=== PATIENT | female | born 2000 | race Caucasian/White ===

== ENCOUNTER 2022-02-07 13:47 | Inpatient (IN) | payer OTHER ==
[~2022-02-07] VITALS: Ht 172.7 cm; Wt 47.2 kg
[2022-02-07] VITALS (7 sets, daily range): BP systolic 94–112; BP diastolic 49–75
--- NOTE | 2022-02-07 14:38 | NUR ---
admitted from [facility] for gi bled. Her hgb at [facility] was 5.8. she had a unit of PC there; completed. originally started in July she would have bloody stools ; sometimes bright red. she has lost approx 40 pounds since then. dairy makes it worse. food sometimes makes her feels nauseated. she has had a tendency to be anemic and will take an occasional iron pill. otherwise she takes no meds. she does vape daily.
--- NOTE | 2022-02-07 14:55 | PDOC1 ---
History and Physical Date of Admission Date of Admission DATE: 02/07/22 TIME: 14:55 Identification/Chief Complaint Chief Complaint Blood in stool, acute anemia Source Source: Patient History of Present Illness History of Present Illness Ms Holliday is a 21 yo female with no PMHx who presents as a transfer from [facility] in [place] for acute anemia. She was instructed at 2300 overnight on 02/06/2022 from her PCP office to go to ED for treatment of Hb of 5.2. She has been having dark and bloody stools since July 2021. Stools are watery with cramping and relief after a BM. She notes she has a BM within 20 minutes of eating and has an intermittently fluctuating appetite. She note almost a 40 pound weight loss. 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 She has since quit working a police office but symptoms persisted. She has related lightheadedness and dizziness and recently dyspnea with exertion. She has her first GI appointment outpatient scheduled on 02/09/2022. Has an irregular period, some spotting x 2 months. On ROS she notes pruritic lesions that are raised and red 4x8cm on her left anterior thigh, right posterior thigh and abdominal wall, she calls them mosquito bites Denies use of blood thinners. Denies . No nausea or vomiting. Patient does report family history in father with Crohn's disease. She did go to urgent care and ED in November and had CT abdomen/pelvis on 11/27/2021 showed diffuse colonic wall thickening with pericolic edema most prominent within the distal colon and rectum, concerning for infectious or inflammatory colitis and numerous small abdominal and pelvic lymph nodes, potentially reactive. She was treated with antibiotics and sent home. In ED notably tachycardic, pale, uncomfortable. Given IV protonix and type and screen. Labs with WBC 11.5, Hb 5.8, MCV 61, platelets 700, INR 1.1, PTT 24, NA 135 K4.1, BUN 10, CR 0.7, glucose 98, calcium 8.8, bilirubin 0.4, AST 17, ALT 20, alkaline phosphatase 68, albumin 2.8, lipase 530. Type and screen and transfused 1 unit PRBC, transferred to [facility] for further care. Past Medical History Cardiovascular: No pertinent hx Past Surgical History Past Surgical History left wrist surgery after injury with punch box tender, Right inguinal hernia repair as a child Family History Family History: Other (Crohn disease - father) Social History Smoke: <1 pack per day (Vapes nicotine) ALCOHOL: occassional Drugs: None Allergies Allergies: Coded Allergies: No Known Drug Allergies (Unverified , 02/07/22) ROS General: YES: Fatigue, Malaise; No: Chills, Night Sweats, Appetite, Other PSYCHOLOGICAL ROS: No: Anxiety, Behavioral Disorder, Concentration difficultie, Decreased libido, Depression, Disorientation, Hallucinations, Hostility, Irritablity, Memory difficulties, Mood Swings, Obsessive thoughts, Physical abuse, Sexual abuse, Sleep disturbances, Suicidal ideation, Other Eyes: No Blurry vision, No Decreased vision, No Double vision, No Dry eyes, No Excessive tearing, No Eye Pain, No Itchy Eyes, No Loss of vision, No Photophobi a, No Scotomata, No Uses contacts, No Uses glasses, No Other HEENT: No: Heacaches, Visual Changes, Hearing change, Nasal congestion, Nasal discharge, Oral lesions, Sinus pain, Sore Throat, Epistaxis, Sneezing, Snoring, Tinnitus, Vertigo, Vocal changes, Other ALLERGY AND IMMUNOLOGY: No: Hives, Insect Bite Sensitivity, Itchy/Watery Eyes, Nasal Congestion, Post Nasal Drip, Seasonal Allergies, Other Hematological and Lymphatic: YES: Bleeding Problems; No: Blood Clots, Blood Transfusions, Brusing, Night Sweats, Pallor, Swollen Lymph Nodes, Other ENDOCRINE: No: Breast Changes, Galactorrhea, Hair Pattern Changes, Hot Flashes, Malaise/lethargy, Mood Swings, Palpitations, Polydipsia/polyuria, Skin Changes, Temperature Intolerance, Unexpected Weight Changes, Other Breast: No New/Changing Breast Lumps, No Nipple changes, No Nipple discharge, No Other Respiratory: No: Cough, Hemoptysis, Orthopnea, Pleuritic Pain, Shortness of breath, SOB with excertion, Sputum Changes, Stridor, Tachypnea, Wheezing, Other Cardiovascular: No Chest Pain, No Palpitations, No Orthopnea, No Paroxysmal Noc. Dyspnea, No Edema, No Lt Headedness, No Other Gastrointestinal: Yes Abdominal Pain, Yes Diarrhea, Yes Melena, Yes Hematochezia; No Nausea, No Vomiting, No Constipation, No Other Genitourinary: No Dysuria, No Frequency, No Incontinence, No Hematuria, No Retention, No Discharge, No Urgency, No Pain, No Flank Pain, No Other, No , No , No , No , No , No , No Musculoskeletal: No Gait Disturbance, No Joint Pain, No Joint Stiffness, No Joint Swelling, No Muscle Pain, No Muscular Weakness, No Pain In:, No Swelling In:, No Other Neurological: No Behavorial Changes, No Bowel/Bladder ControlChng, No Confusion, No Dizziness, No Gait Disturbance, No Headaches, No Impaired Coord/balance, No Memory Loss, No Numbness/Tingling, No Seizures, No Speech Problems, No Tremors, No Visual Changes, No Weakness, No Other Skin: No Dry Skin, No Eczema, No Hair Changes, No Lumps, No Mole Changes, No Mottling, No Nail Changes, No Pruritus, No Rash, No Skin Lesion Changes, No Other, No Acne Physical Exam General: Alert, Oriented X3, Cooperative, mild distress HEENT: Atraumatic, PERRLA, EOMI, Other (pale mucous membranes) Lungs: Clear to auscultation, Normal air movement Heart: S1S2, RRR, no thrills, no rubs, no gallops, no murmurs Abdomen: Normal bowel sounds, Soft, No tenderness, No hepatosplenomegaly, No masses Rectal Exam: not examined Extremities: No clubbing, No cyanosis, No edema, Normal pulses, No tenderness/swelling Skin: Other (raised erythematous lesions on left thigh, right posterior thigh, abdominal wall) Neuro: Normal gait, Normal speech, Strength at 5/5 X4 ext, Normal tone, Sensation intact, Cranial nerves 3-12 NL, Reflexes 2+ Psych/Mental Status: Mental status NL, Mood NL Vitals Vitals Vital Signs Date Time Temp Pulse Resp B/P (MAP) Pulse Ox O2 Delivery O2 Flow Rate FiO2 02/07/22 14:01 Room Air Images Images CT abdomen/pelvis 11/27/2021: CT ABDOMEN PELVIS WO CONTRAST CT ABDOMEN+PELVIS WO History: Reason: DIARRHEA, ABNORMAL WEIGHT LOSS / Spl. Instructions: LMP X2 WEEKS AGO / History: Technique: Noncontrast examination of the abdomen and pelvis. Coronal and sagittal reconstructions were performed. Exposure: One or more of the following individualized dose reduction techniques were utilized for this examination: 1. Automated exposure control 2. Adjustment of the mA and/or kV according to patient size 3. Use of iterative reconstruction technique. Comparison: None Findings: Lower chest: No consolidation or pleural effusion. Abdomen and pelvis: Unremarkable noncontrast appearance of the liver, spleen, adrenal glands, pancreas and gallbladder. No biliary ductal dilatation. No renal calculus. No hydronephrosis. Decompressed urinary bladder. Diffuse colonic wall thickening most prominent within the distal colon and rectum moderate. There is adjacent pericolonic edema most prominent distally. Normal appendix. No evidence of bowel obstruction. No pneumoperitoneum. No pneumatosis. Numerous small mesenteric and retroperitoneal as well as pelvic lymph nodes. No ascites. Bones: No pathologic osseous lesions. Impression: 1. Diffuse colonic wall thickening with pericolic edema most prominent within the distal colon and rectum, concerning for infectious or inflammatory colitis. Recommend further clinical evaluation. 2. Numerous small abdominal and pelvic lymph nodes, potentially reactive. Recommend follow-up. VTE Prophylaxis Ordered VTE Prophylaxis Devices: No VTE Pharmacological Prophylaxi: No Assessment/Plan Assessment/Plan Acute blood loss anemia - likely due to lower GI losses based on inflammatory changes on prior CT. Transfuse to Hb > 7 for active bleeding, check iron and will give IV iron as well Bloody diarrhea - with crampy abdominal pain. likely IBD, will check for ova/parasites and r/o c. difficile and shigella/salmonella and other enteric pathogens. Check fecal lactoferrin, CRP, Sed rate Abnormal weight loss - likely due to malabsorption from presumptive colitis. Will check B12, vitamin D Raised skin lesions - likely erythema nodosum. Topical benadryl and 1% hydrocortisone Elevated lipase - minimally elevated, no elevation in alk phos, not clear etiology FEN - General diet PPX - PPI FULL CODE Dispo - inpatient for symptomatic active blood loss anemia Justifications for Admission Other Justification SHAYLA YOON MD Feb 07, 2022 14:55
[2022-02-07] MEDS ORDERED: ONDANSETRON PF 4 MG/2 ML VIAL. IVP PRN (15:00)
[2022-02-07] MEDS ORDERED: fentaNYL PF VIAL 100 MCG/2 ML VIAL IVP PRN (15:00)
[2022-02-07] MEDS ORDERED: ACETAMINOPHEN 650 MG SUPP.RECT. PR PRN (15:00)
[2022-02-07] MEDS ORDERED: BISACODYL 10 MG SUPP.RECT. PR PRN (15:00)
--- NOTE | 2022-02-07 16:00 | PDOC2 ---
GI CONSULT Date of Service: DATE: 02/07/22 TIME: 15:52 Reason For Consult: acute anemia HPI: HPI: 21 y/o female sent from [facility]. History from chart, pt, and supportive parents at bedside. Ill since 07/2021 w/ diarrhea (3-4 times daily, watery/loose, frequently w/ red blood), intermittent lower abdominal cramping, intermittent vomiting (none for 1.5 months), fluctuating appetite, and weight loss (40 pounds). Was seen at an urgent care in [place] in 11/2021. Told "blood was thin and there's not much of it." Also outpt CT ordered - done @ [facility] and showed "diffuse colonic wall thickening w/ pericolic edema most prominent within distal colon and rectum." Also noted "numerous small abdominal and pelvic lymph nodes, potentially reactive." Was treated w/ an antibiotic per urgent care. Established PCP recently - had labs yesterday and was called w/ critical result of Hgb 5.2 last night and advised to go to the ER. Labs at [facility]: Hgb 5.8, MCV 61, plt 700, INR 1.1, BUN 10, Cr 0.7, normal LFTs, lipase 530, albumin 2.8. Given 1 unit pRBCs prior to transfer. Has noted some epigastric discomfort when abdomen palpated today. No heartburn/reflux, dysphagia, hematemesis, constipation, or melena. No previous EGD or colonoscopy. No GB, liver, pancreas, or PUD history. Occasional ibuprofen for headaches. Took probiotics in the past. Anemic as a child, was told to eat more meat. Has some mosquitos bites on legs that popped up today that are very itchy. Also has some occasional abdominal pain that tracks from left pelvis to LUQ - feels like past period cramps; however, hasn't had a period other than maybe some spotting x 2 months. Really hungry, hasn't eaten to 12 hours. Surprised that she is to stay the night in the hospital - wants to discharge soon. PMH: PMH: anemia as a child, headaches left wrist surgery after injury with box fabricator, inguinal hernia repair as a child FH: Family History: Other (Crohn's - father) Social History: Smoke: <1 pack per day (vapes) ALCOHOL: occassional ROS: GEN: Denies fevers, chills, sweats HEENT: Denies blurred vision, sore throat CV: Denies chest pain RESP: Denies shortness of air, cough GI: Per HPI : Denies hematuria, dysuria ENDO: Denies weight changes NEURO: Denies confusion, dizziness MSK: +weakness SKIN: Denies jaundice, pruritus Vitals: Vitals: Vital Signs Date Time Temp Pulse Resp B/P (MAP) Pulse Ox O2 Delivery O2 Flow Rate FiO2 02/07/22 14:01 Room Air Labs: Labs: as above Allergies: Coded Allergies: No Known Drug Allergies (Unverified , 02/07/22) Imaging: Imaging: previous CT per HPI PE: GEN: NAD, thin HEENT: Atraumatic, PERRL LUNGS: CTAB HEART:mildly tachycardic ABD: quiet BS, S/ND, mild epigastric discomfort EXTREMITY: No edema SKIN: +tattoos, pale NEURO/PSYCH: A & O 3 A/P: A/P: Bloody diarrhea x 7 months w/ weight loss and abdominal cramping Profound microcytic anemia Mildly elevated lipase - unclear significance H/o abnormal CT - diffuse colonic wall thickening w/ pericolic edema most prominent in distal colon/rectum - treated w/ atbx per urgent care CRC screen - none FH Crohn's -- D/w Dr. Cabrera - isabella to advance diet - called to nurse. Await lab recheck - transfuse for Hgb > 7. Note sed rate and lactoferrin ordered, will add C Diff for completeness since given antibiotics in 11/2021. Concern for IBD given symptoms and family history. 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 Empiric PPI, check anemia parameters, consider iron infusion, consider interval abdominal imaging. LIZA LYNN Feb 07, 2022 16:00
[2022-02-07] MEDS: IV RINGERS,LACTATED 1000ML 1,000 ML IV SCH (17:25)
[2022-02-07 18:12] LABS: HEMATOCRIT 22.6 % (36.0-47.0); RED BLOOD COUNT 3.55 x10^6/uL (3.50-5.40); RED CELL DISTRIBUTION WIDTH 29.4 % (11.5-14.5)
[2022-02-07 18:23] LABS: HEMOGLOBIN 6.6 g/dL (12.0-15.5)
[2022-02-07] MEDS ORDERED: diphenhydrAMINE HCL 25 MG CAPSULE PO PRN ×2 (18:45)
[2022-02-07] MEDS ORDERED: DIPHENHYDRAMINE/ZINC ACETATE 2%/0.1% TOPICAL CREAM 28GM TUBE. TP PRN (18:45)
[2022-02-07] MEDS ORDERED: IRON SUCROSE COMPLEX 200 MG in IV NORMAL SALINE 100ML 100 ML IV ONE (20:00)
[2022-02-07 20:06] LABS: U PREG PATIENT NEGATIVE (NEG)
[2022-02-07] MEDS: HYDROCORTISONE 1% LOTION BOTTLE. TP SCH (20:11)
[2022-02-08] VITALS (8 sets, daily range): BP systolic 90–117; BP diastolic 45–68
[2022-02-08] MEDS: IV RINGERS,LACTATED 1000ML 1,000 ML IV SCH ×2 (05:05→18:25)
[2022-02-08 08:06] LABS: BASO # 0.1 x10^3/uL (0.0-0.2); BASO % 1 % (0-3); EOS # 1.5 x10^3/uL (0.0-0.7); EOS % 15 % (0-3); HEMATOCRIT 26.3 % (36.0-47.0); HEMOGLOBIN 7.9 g/dL (12.0-15.5); LYMPH # 1.6 x10^3/uL (1.0-4.8); LYMPH % 16 % (24-48); MEAN CORPUSCULAR HEMOGLOBIN 20 pg (25-35); MEAN CORPUSCULAR HGB CONC 30 g/dL (31-37); MEAN CORPUSCULAR VOLUME 65 fL (79-100); MONO # 1.1 x10^3/uL (0.0-1.1); MONO % 11 % (0-9); NEUT # 5.8 x10^3/uL (1.8-7.7); NEUT % 58 % (31-73); PLATELET COUNT 513 x10^3/uL (140-400); RED BLOOD COUNT 4.01 x10^6/uL (3.50-5.40); RED CELL DISTRIBUTION WIDTH 28.4 % (11.5-14.5); WHITE BLOOD COUNT 10.1 x10^3/uL (4.0-11.0)
[2022-02-08] MEDS ORDERED: CYANOCOBALAMIN (VITAMIN B-12) 1,000 MCG/ML VIAL. IM ONE (08:30)
[2022-02-08] MEDS: PANTOPRAZOLE 40 MG TABLET.DR. PO SCH (08:36)
[2022-02-08] MEDS: HYDROCORTISONE 1% LOTION BOTTLE. TP SCH ×3 (08:36→21:17)
[2022-02-08 08:47] LABS: ALBUMIN 2.5 g/dL (3.4-5.0); ALBUMIN/GLOBULIN RATIO 0.6 (1.0-1.7); CALCIUM 8.6 mg/dL (8.5-10.1); CREATININE 0.8 mg/dL (0.6-1.0); GFR 89.7; POTASSIUM 3.7 mmol/L (3.5-5.1); TOTAL PROTEIN 6.6 g/dL (6.4-8.2)
[2022-02-08] MEDS ORDERED: IRON SUCROSE COMPLEX 200 MG in IV NORMAL SALINE 100ML 100 ML IV ONE (09:00)
[2022-02-08 09:20] LABS: % BANDS 38 % (0-9); % EOS 20 % (0-5); % LYMPHS 14 % (24-48); % METAS 3 % (0-0); % MONOS 10 % (0-10); % SEGS 15 % (35-66)
[2022-02-08 09:21] LABS: ANISOCYTOSIS MOD; MICROCYTOSIS PRESENT; PLT ESTIMATE INCREASED (ADEQUATE); POLYCHROMASIA SLIGHT
--- NOTE | 2022-02-08 10:12 | PDOC ---
Date of Service: DATE: 02/08/22 TIME: 09:59 Subjective: Subjective: Feels better after transfusions. Tolerating regular diet. Has had two loose stools w/ dark red blood. Really would like to go home. She's busy, is started a new job in a couple days, and a friend's birthday is tomorrow. Since admission, she received a message from her new PCP that she has an appointment w/ Dr. Chen in [place] on Saturday. Nurse present to hang iron infusion. Objective: Objective: D/w nurse later - pt also told her she's getting a tattoo tomorrow. Low normal B12 (replacement ordered), low vit D, many fecal WBCs, CRP normal, ESR 32. C Diff, enteric panel, O&P, lactoferrin pending. Vital Signs: Vital Signs Date Time Temp Pulse Resp B/P (MAP) Pulse Ox O2 Delivery O2 Flow Rate FiO2 02/08/22 08:00 Room Air 02/08/22 07:00 98.1 94 16 101/55 (70) 97 98.1 Labs: Laboratory Tests Test 02/07/22 17:50 02/07/22 19:00 02/08/22 07:15 White Blood Count 10.0 x10^3/uL 10.1 x10^3/uL Red Blood Count 3.55 x10^6/uL 4.01 x10^6/uL Hemoglobin 6.6 g/dL 7.9 g/dL Hematocrit 22.6 % 26.3 % Mean Corpuscular Volume 64 fL 65 fL Mean Corpuscular Hemoglobin 19 pg 20 pg Mean Corpuscular Hemoglobin Concent 29 g/dL 30 g/dL Red Cell Distribution Width 29.4 % 28.4 % Platelet Count 545 x10^3/uL 513 x10^3/uL Erythrocyte Sedimentation Rate 32 Iron Level 23 ug/dL Total Iron Binding Capacity 318 ug/dL Iron Saturation 7 % C-Reactive Protein, Quantitative 1.9 mg/L Vitamin B12 Level 366 pg/mL Urine Test Negative Neutrophils (%) (Auto) 58 % Lymphocytes (%) (Auto) 16 % Monocytes (%) (Auto) 11 % Eosinophils (%) (Auto) 15 % Basophils (%) (Auto) 1 % Neutrophils # (Auto) 5.8 x10^3/uL Lymphocytes # (Auto) 1.6 x10^3/uL Monocytes # (Auto) 1.1 x10^3/uL Eosinophils # (Auto) 1.5 x10^3/uL Basophils # (Auto) 0.1 x10^3/uL Segmented Neutrophils % 15 % Band Neutrophils % 38 % Lymphocytes % 14 % Monocytes % 10 % Eosinophils % 20 % Metamyelocytes % 3 % Platelet Estimate Increased Polychromasia Slight Anisocytosis Mod Microcytosis Present Sodium Level 139 mmol/L Potassium Level 3.7 mmol/L Chloride Level 105 mmol/L Carbon Dioxide Level 27 mmol/L Anion Gap 7 Blood Urea Nitrogen 8 mg/dL Creatinine 0.8 mg/dL Estimated GFR (Cockcroft-Gault) 89.7 BUN/Creatinine Ratio 10 Glucose Level 74 mg/dL Calcium Level 8.6 mg/dL Total Bilirubin 1.0 mg/dL Aspartate Amino Transf (AST/SGOT) 11 U/L Alanine Aminotransferase (ALT/SGPT) 14 U/L Alkaline Phosphatase 58 U/L Total Protein 6.6 g/dL Albumin 2.5 g/dL Albumin/Globulin Ratio 0.6 25-Hydroxy Vitamin D Total 22.0 ng/mL PE: GEN: NAD LUNGS: CTAB HEART: RRR ABD: quiet BS, soft, non-tender NEURO/PSYCH: A & O 3 A/P: Concern for new onset IBD/?UC Bloody diarrhea, abd pain, weight loss EDY, abnormal CT w/ diffuse colitis most prominent left-sided/rectum FH Crohn's -- Offered inpt colonoscopy tomorrow after d/w Dr. Cabrera - suggested this would be better for her in the long run to clarify diagnosis, started treatment, etc. - she declines. Suggested she stay to d/w Dr. Cabrera this afternoon - she's agreeable. D/w Dr. Cheng. Update, d/w Dr. Cheng - pt willing to stay if scope can be done in morning. Clear liquid diet now - called to nurse. Will order prep, set up w/ GI lab. Justicifation of Admission Dx: Justifications for Admission: Justification of Admission Dx: Yes LIZA LYNN Feb 08, 2022 10:12
--- NOTE | 2022-02-08 11:16 | NUR ---
SS following for discharge planning. SS reviewed pt chart and discussed with pt RN. Pt is from home and is currently on room air. GI following. Discharge plan is currently to home when medically ready for discharge. SS will continue to follow for discharge planning.
[2022-02-08] MEDS ORDERED: POLYETHYLENE GLYCOL 3350 BTL 238 GM POWDER PO ONE ×2 (11:45→16:00)
[2022-02-08] MEDS: ACETAMINOPHEN 325 MG TABLET. PO PRN ×2 (12:01→19:16)
--- NOTE | 2022-02-08 12:30 | PDOC ---
[employer] PROGRESS NOTE Date of Service DOS: DATE: 02/08/22 TIME: 12:30 Chief Complaint Chief Complaint Acute blood loss anemia - likely due to lower GI losses based on inflammatory changes on prior CT. Transfuse to Hb > 7 for active bleeding, check iron and will give IV iron as well Bloody diarrhea - with crampy abdominal pain. likely IBD, will check for ova/parasites and r/o c. difficile and shigella/salmonella and other enteric pathogens. Check fecal lactoferrin, CRP, Sed rate Abnormal weight loss - likely due to malabsorption from presumptive colitis. Will check B12, vitamin D Raised skin lesions - likely erythema nodosum. Topical benadryl and 1% hydrocortisone Elevated lipase - minimally elevated, no elevation in alk phos, not clear etiology FEN - General diet PPX - PPI FULL CODE Dispo - inpatient for symptomatic active blood loss anemia History of Present Illness History of Present Illness 02/08 Patient evaluated examined at bedside. She is still very uncertain if she wants to stay for colonoscopy. Discussed with her the medical implications of this. Asked if she would be willing to stay if can get procedure done first in the morning after some convincing she was agreeable to this informed GI team. Colonoscopy planned for tomorrow morning. Prep ordered. Monitor hemoglobin Vitals/I&O Vitals/I&O: Vital Signs Date Time Temp Pulse Resp B/P (MAP) Pulse Ox O2 Delivery O2 Flow Rate FiO2 02/08/22 08:00 Room Air 02/08/22 07:00 98.1 94 16 101/55 (70) 97 98.1 l I & O 02/07/22 02/07/22 02/08/22 15:00 23:00 07:00 Intake Total 540 ml 1000 ml Output Total 700 ml Balance -160 ml 1000 ml Physical Exam General: Alert, Oriented X3, Cooperative, mild distress Heart: Regular rate Lungs: Clear Abdomen: Normal bowel sounds, Soft, No tenderness, No hepatosplenomegaly, No masses Extremities: No clubbing, No cyanosis, No edema, Normal pulses, No tenderness/swelling Skin: Other (raised erythematous lesions on left thigh, right posterior thigh, abdominal wall) Labs Labs: Laboratory Tests Test 02/07/22 17:50 02/07/22 19:00 02/08/22 07:15 White Blood Count 10.0 x10^3/uL (4.0-11.0) 10.1 x10^3/uL (4.0-11.0) Red Blood Count 3.55 x10^6/uL (3.50-5.40) 4.01 x10^6/uL (3.50-5.40) Hemoglobin 6.6 g/dL (12.0-15.5) 7.9 g/dL (12.0-15.5) Hematocrit 22.6 % (36.0-47.0) 26.3 % (36.0-47.0) Mean Corpuscular Volume 64 fL (79-100) 65 fL (79-100) Mean Corpuscular Hemoglobin 19 pg (25-35) 20 pg (25-35) Mean Corpuscular Hemoglobin Concent 29 g/dL (31-37) 30 g/dL (31-37) Red Cell Distribution Width 29.4 % (11.5-14.5) 28.4 % (11.5-14.5) Platelet Count 545 x10^3/uL (140-400) 513 x10^3/uL (140-400) Erythrocyte Sedimentation Rate 32 (0-25) Iron Level 23 ug/dL (50-170) Total Iron Binding Capacity 318 ug/dL (250-450) Iron Saturation 7 % (15-34) C-Reactive Protein, Quantitative 1.9 mg/L (0-3.3) Vitamin B12 Level 366 pg/mL (247-911) Urine Test Negative (NEG) Neutrophils (%) (Auto) 58 % (31-73) Lymphocytes (%) (Auto) 16 % (24-48) Monocytes (%) (Auto) 11 % (0-9) Eosinophils (%) (Auto) 15 % (0-3) Basophils (%) (Auto) 1 % (0-3) Neutrophils # (Auto) 5.8 x10^3/uL (1.8-7.7) Lymphocytes # (Auto) 1.6 x10^3/uL (1.0-4.8) Monocytes # (Auto) 1.1 x10^3/uL (0.0-1.1) Eosinophils # (Auto) 1.5 x10^3/uL (0.0-0.7) Basophils # (Auto) 0.1 x10^3/uL (0.0-0.2) Segmented Neutrophils % 15 % (35-66) Band Neutrophils % 38 % (0-9) Lymphocytes % 14 % (24-48) Monocytes % 10 % (0-10) Eosinophils % 20 % (0-5) Metamyelocytes % 3 % (0-0) Platelet Estimate Increased (ADEQUATE) Polychromasia Slight Anisocytosis Mod Microcytosis Present Sodium Level 139 mmol/L (136-145) Potassium Level 3.7 mmol/L (3.5-5.1) Chloride Level 105 mmol/L (98-107) Carbon Dioxide Level 27 mmol/L (21-32) Anion Gap 7 (6-14) Blood Urea Nitrogen 8 mg/dL (7-20) Creatinine 0.8 mg/dL (0.6-1.0) Estimated GFR (Cockcroft-Gault) 89.7 BUN/Creatinine Ratio 10 (6-20) Glucose Level 74 mg/dL (70-99) Calcium Level 8.6 mg/dL (8.5-10.1) Total Bilirubin 1.0 mg/dL (0.2-1.0) Aspartate Amino Transf (AST/SGOT) 11 U/L (15-37) Alanine Aminotransferase (ALT/SGPT) 14 U/L (14-59) Alkaline Phosphatase 58 U/L (46-116) Total Protein 6.6 g/dL (6.4-8.2) Albumin 2.5 g/dL (3.4-5.0) Albumin/Globulin Ratio 0.6 (1.0-1.7) 25-Hydroxy Vitamin D Total 22.0 ng/mL (30-100) Comment Review of Relevant I have reviewed the following items harvey (where applicable) has been applied. Medications: Current Medications Medications (Trade) Dose Ordered Sig/Alexis Route PRN Reason Start Time Stop Time Status Last Admin Dose Admin Ringer's Solution 1,000 ml @ 75 mls/hr [id number] IV 02/07/22 15:45 02/09/22 07:44 02/08/22 05:05 Pantoprazole Sodium (Protonix) 40 mg DAILYAC PO 02/08/22 07:30 02/08/22 08:36 Diphenhydramine HCl (Benadryl) 25 mg PRN QHS PRN PO INSOMNIA 02/07/22 18:45 02/07/22 21:22 Hydrocortisone (Cortizone-10) 1 radha TID TP 02/07/22 21:00 02/08/22 08:36 Iron Sucrose 200 mg/Sodium Chloride 110 ml @ 55 mls/hr 1X ONCE IV 02/08/22 09:00 02/08/22 10:59 DC 02/08/22 09:03 Cyanocobalamin (Vitamin B-12 Inj) 1,000 mcg 1X ONCE IM 02/08/22 08:30 02/08/22 08:31 DC 02/08/22 08:36 Acetaminophen (Tylenol) 650 mg PRN Q6HRS PRN PO MILD PAIN / TEMP > 100.3'F 02/08/22 12:00 02/08/22 12:01 Justifications for Admission Abdominal Pain Indications Is NPO status required?: Yes Other Justification SHAYLA GRUBER MD Feb 08, 2022 12:30
[2022-02-08] MEDS ORDERED: BISACODYL 5 MG TABLET.DR. PO ONE (14:00)
[2022-02-08] MEDS ORDERED: MAGNESIUM CITRATE 296 ML SOLUTION. PO ONE (19:00)
[2022-02-09 03:00] VITALS: BP 91/49
[2022-02-09] MEDS ORDERED: HYDROmorphone 2 MG/ML INJ. IVP PRN (06:00)
[2022-02-09] MEDS ORDERED: PROCHLORPERAZINE 10 MG/2 ML VIAL. IVP PRN (06:00)
[2022-02-09] MEDS ORDERED: MORPHINE SULFATE 2 MG/ML INJ. IVP PRN (06:00)
[2022-02-09] MEDS ORDERED: fentaNYL PF VIAL 100 MCG/2 ML VIAL IVP PRN ×2 (06:00)
[2022-02-09] MEDS ORDERED: IV RINGERS,LACTATED 1000ML 1,000 ML IV SCH (06:00)
[2022-02-09 07:00] VITALS: BP 106/57
[2022-02-09] MEDS: PANTOPRAZOLE 40 MG TABLET.DR. PO SCH (07:25)
[2022-02-09] MEDS: HYDROCORTISONE 1% LOTION BOTTLE. TP SCH (07:59)
[2022-02-09 08:39] VITALS: BP 130/72
[2022-02-09] MEDS ORDERED: PROPOFOL 10 MG/ML (20ML) VIAL. IV ONE (10:02)
--- NOTE | 2022-02-09 10:36 | PDOC4 ---
Operative Note Operative Note EGD with bx Colon with bx Meds propofol per anesthesia Pre-op dx anemia/rectal bleed/diarrhea post-op dx duodenitis s/p bx panulcerative colitis s/p bx Plan release home prednisone 20 mg bid apriso 0.375 mg 4 daily office fu 2-3 weeks BIRGIT DUFFY MD Feb 09, 2022 10:36
--- NOTE | 2022-02-09 10:48 | PDOC3 ---
[facility]-Discharge Summary Date of Admission: Date of Admission: Feb 07, 2022 Date of Discharge: Date of Discharge: Feb 09, 2022 Admission Diagnosis: Admitting Diagnosis: GI bleed Consults: Consults: GI Hospital Course: Hospital Course: Acute blood loss anemia - likely due to lower GI losses based on inflammatory changes on prior CT. Transfuse to Hb > 7 for active bleeding, check iron and will give IV iron as well Bloody diarrhea - with crampy abdominal pain. likely IBD, will check for ova/parasites and r/o c. difficile and shigella/salmonella and other enteric pathogens. Check fecal lactoferrin, CRP, Sed rate Abnormal weight loss - likely due to malabsorption from presumptive colitis. Will check B12, vitamin D Raised skin lesions - likely erythema nodosum. Topical benadryl and 1% hydrocortisone Elevated lipase - minimally elevated, no elevation in alk phos, not clear etiology FEN - General diet PPX - PPI FULL CODE Dispo - inpatient for symptomatic active blood loss anemia History of Present Illness History of Present Illness 02/08 Patient evaluated examined at bedside. She is still very uncertain if she wants to stay for colonoscopy. Discussed with her the medical implications of this. Asked if she would be willing to stay if can get procedure done first in the morning after some convincing she was agreeable to this informed GI team. Colonoscopy planned for tomorrow morning. Prep ordered. Monitor hemoglobin 02/09 Underwent EGD and colonoscopy this morning. Concern for ulcerative colitis on colonoscopy. Patient was provided prescriptions by GI team for treatment and will follow up with them outpatient. Plan to d/c today. Greater than 30 min spent on d/c. Disposition: Disposition/Orders: D/C to Home Activity: Activity: Resume previous activity Diet: Diet: Regular Medications: Home Meds No Active Prescriptions or Reported Meds No Active Prescriptions or Reported Meds Justicifation of Admission Dx: Justifications for Admission: Justification of Admission Dx: Yes SHAYLA GRUBER MD Feb 09, 2022 10:47
[2022-02-09 11:00] VITALS: BP 106/73
--- NOTE | 2022-02-09 11:14 | NUR ---
SS following up with discharge planning. SS reviewed pt chart and discussed with pt RN. Pt is currently on room air. EGD and Colonoscopy today. Discharge order on the chart for home with self care.
--- NOTE | 2022-02-09 11:50 | NUR ---
Discharge Note: PT DISCHARGED HOME WITH SELF CARE. PT LEFT FACILITY VIA PRIVATE VEHICLE WITH MOM AT 1147. PT STABLE AND ALERT UPON DISCHARGE. ANXIOUS TO GET OUT OF HERE. PT PIV REMOVED FROM L FA WITHOUT COMPLICATIONS, BANDAGE APPLIED. PT TELE MONITOR REMOVED. PT EDUCATED ABOUT DISCHARGE INSTRUCTIONS, DISCHARGE MEDICATIONS, AND FOLLOW-UP CARE INSTRUCTIONS. NO CONCERNS VOICED AT THIS TIME. PT LEFT WITH ALL PERSONAL BELONGINGS. CONI RUBIO Discharge instructions and discharge home medications reviewed with Patient and a copy given. All questions have been answered and understanding verbalized.
--- NOTE | 2022-02-12 17:07 | PATHOLOGY ---
[facility] Accession Number: [id number] . 01 Material submitted: . PART A: duodenum - DUODENAL BIOPSY PART B: colon - RANDOM COLON BIOPSY . 01 Clinical history: . ANEMIA R/O CELIAC/ R/O COLITIS . 02 Diagnosis: A. Duodenal biopsy: - No diagnostic abnormalities. . B. Colonic mucosa, random colon biopsies: - Active chronic colitis, mild to moderate, without granulomas or specific features. See comment. . (JPM:ophthalmic asst; 02/12/2022) [facility] 02/12/2022 1553 Local . 02 Comment: Sections of the duodenal biopsy reveal segments of duodenal and small intestine mucosa. Where best oriented, mucosal villi show no sprue-like changes or significant inflammatory changes. . Sections of the random colon biopsy reveal multiple segments of colonic mucosa showing mild to moderate active chronic inflammation with focal crypt architectural distortion, acute cryptitis, and crypt abscesses. There are no granulomas or specific features. The findings are compatible with chronic inflammatory bowel disease and are suggestive of ulcerative colitis. There is no evidence of dysplasia or malignancy. . (JPM:ophthalmic asst; 02/12/2022) . 02 Electronically signed: . Arpit Benson MD, Pathologist NPI- [id number] . 01 Gross description: . A. Received in formalin labeled "Land, [place], duodenal biopsy" are multiple azevedo-brown soft tissue fragments measuring in aggregate 1.9 x 0.7 x 0.3 cm. The specimen is submitted entirely in A1. . B. Received in formalin labeled "Land, [place], random colon biopsy" are multiple azevedo-brown soft tissue fragments measuring in aggregate 2.9 x 0.7 x 0.3 cm. The specimen is submitted entirely in B1. ([facility]; 02/10/2022) [facility] 02/12/2022 1549 Local . 02 Pathologist provided ICD-10: K52.9, D64.9 . 02 CPT . 791968, 364172 Specimen Comment: A courtesy copy of this report has been sent to [phone], [phone] Specimen Comment: [phone], , Specimen Comment: Report sent to , DR REDMOND, DR CHAIDEZ Specimen Comment: / DR ANTONY Specimen Comment: A duplicate report has been generated due to demographic updates. Performed at: 01 [facility] [address], [place], [place] [id number] MD Soren Hsu MD Phone: [phone] Performed at: 02 [facility] [address] [place], [place] [id number] MD Arpit Benson MD Phone: [phone]
== END 2022-02-09 11:47 | disposition home or self-care (01) | DRG 385 ==
LOC: 5 NORTH 13:47
PROVIDERS: ADMIT Internal Medicine; ATTEND Internal Medicine
PROC: 0DB68ZX Excision of Stomach, Via Natural or Artificial Opening Endoscopic, Diagnostic (ICD-10-PCS; principal; 2022-02-07)
PROC: 30233N1 Transfusion of Nonautologous Red Blood Cells into Peripheral Vein, Percutaneous Approach (ICD-10-PCS; 2022-02-07)
DX: K51.911 Ulcerative colitis, unspecified with rectal bleeding (principal); K29.81 Duodenitis with bleeding; D62 Acute posthemorrhagic anemia; K90.9 Intestinal malabsorption, unspecified; Z68.1 Body mass index [BMI] 19.9 or less, adult; L52 Erythema nodosum; R74.8 Abnormal levels of other serum enzymes; R63.4 Abnormal weight loss; F17.210 Nicotine dependence, cigarettes, uncomplicated; L29.9 Pruritus, unspecified; Z20.822 Contact with and (suspected) exposure to COVID-19
CPT/HCPCS: 36415; 43239; 45380; 80053; 81025; 82306; 82607; 83540; 83550; 83631; 85007; 85025; 85027; 85651; 86140; 86850; 86900; 86901; 86920; 87177; 87205; 87209; 87493; 87505; 88305; J1756; J2704; J3420; J7120; P9016; G0378; Q0163